=== PATIENT | female | born 1960 | race American Indian/Alaskan Native ===

== ENCOUNTER 2018-01-06 20:42 | Emergency (ER) | payer OTHER ==
[2018-01-06] MEDS ORDERED: PERCOCET 5/325 PO ONE (22:44)
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
[2018-01-07] MEDS ORDERED: BOOSTRIX IM ONE ×2 (01:00→01:04)
[2018-01-07 01:10] VITALS: BP 150/80
== END 2018-01-07 01:14 | disposition home or self-care (01) ==
LOC: ED 20:42
DX: S51.811A Laceration without foreign body of right forearm, initial encounter (principal); I10 Essential (primary) hypertension; E11.9 Type 2 diabetes mellitus without complications; M19.90 Unspecified osteoarthritis, unspecified site; V09.9XXA Pedestrian injured in unspecified transport accident, initial encounter; Y93.01 Activity, walking, marching and hiking; Y92.89 Other specified places as the place of occurrence of the external cause; Y99.8 Other external cause status
CPT/HCPCS: 90471; 90715; 99284